=== PATIENT | female | born 1965 | race Caucasian/White ===

== ENCOUNTER 2016-09-26 12:28 | Emergency (ER) | payer BC | END 2016-09-26 22:35 | disposition short-term general hospital (02) | LOC: ER 12:28 | DX: I50.9 Heart failure, unspecified (principal); R79.89 Other specified abnormal findings of blood chemistry; C56.9 Malignant neoplasm of unspecified ovary; D64.9 Anemia, unspecified; Z87.442 Personal history of urinary calculi; Z79.899 Other long term (current) drug therapy | CPT/HCPCS: 36415; 84145; 87502; 96365; 96366; 96375; J1650; J1940; Q9967 ==